=== PATIENT | female | born 1975 | race Hispanic/Latino ===

== ENCOUNTER 2017-08-07 09:03 | Observation (INO) | payer SELFPAY ==
[2017-08-07] MEDS ORDERED: Ondansetron HCl/PF 4 MG/2 ML Vial ONE (09:37)
[2017-08-07] MEDS ORDERED: Ketorolac Tromethamine 30 MG/ML VIAL ONE (09:37)
[2017-08-07 09:43] LABS: #Basophils 0.1 thou/uL (0.0-0.2); #Lymphocytes 1.3 thou/uL (1.20-3.40); #Monocytes 0.6 thou/uL (0.11-0.59); #Neutrophils 9.4 thou/uL (1.40-6.50); %Basophils 0.6 % (0.0-1.0); %Eosinophils 0.3 % (0.0-10.0); %Lymphocytes 11.4 % (21.0-51.0); %Monocytes 4.9 % (0.0-10.0); %Neutrophils 82.8 % (42.0-75.0); Hemoglobin 12.5 g/dL (12.0-16.0); Mean Corpuscular HGB CONC 33.6 g/dL (32.0-36.0); Mean Corpuscular Hemoglobin 28.8 pg (27.0-31.0); Mean Corpuscular Volume 85.7 fl (81.0-99.0); Mean Platelet Volume 7.9 fL (7.4-10.4); Platelet Count 180 thou/uL (130-400); RBC Distribution Width 13.2 % (11.5-14.5); Red Blood Cell (RBC) Count 4.33 mill/uL (4.20-5.40); White Blood Cell (WBC) Count 11.3 thou/uL (4.8-10.8)
[2017-08-07 09:54] LABS: BHCG - Serum Negative (NEGATIVE); Pregs Control Background? CLEAR/WHITE (CLR/WHITE); Pregs Control Bar Appear? YES (CONTROL BAR)
[2017-08-07 10:04] LABS: ALT (SGPT) 23 U/L (8-55); AST (SGOT) 26 U/L (5-34); Albumin 3.8 g/dL (3.5-5.0); Alkaline Phosphatase 114 U/L (40-150); Anion Gap 11 mmol/L (10-20); BUN (Urea Nitrogen) 5 mg/dL (7.0-18.7); Bilirubin, Total 0.4 mg/dL (0.2-1.2); Calc. Creatinine Clearance 0 mL/min (70-130); Calcium 9.1 mg/dL (7.8-10.44); Carbon Dioxide 19 mmol/L (22-29); Chloride 109 mmol/L (98-107); Estimated GFR-MDRD 83; Globulin 3.2 g/dL (2.4-3.5); Glucose 117 mg/dL (70-105); Lipase 27 U/L (8-78); Potassium 4.3 mmol/L (3.5-5.1); Sodium 135 mmol/L (136-145)
[2017-08-07 10:22] LABS: Bilirubin Negative (Negative); Blood, Urine Negative (Negative); Clarity CLEAR (Clear); Glucose, Urine (Dipstick) Negative (Negative); Leukocyte Negative (Negative); Protein, Urine (Dipstick) Negative (Neg-Trace); Specific Gravity, Urine 1.015 (1.002-1.036); Urobilinogen 0.2 mg/dL (0.2-1.0)
[2017-08-07 10:28] LABS: Bacteria/HPF None Seen HPF (None Seen); Hyaline Casts/LPF 0-3 HYALINE CAST LPF (0-3 Hyaline); Pathc Cast-AUWi Flag 0.13 (0-2.49); Squamous Epithelial 0-3 HPF (0-3); WBC/HPF 0-3 HPF (0-3)
[2017-08-07 10:30] LABS: Nitrite Negative (Negative)
--- NOTE | 2017-08-07 10:59 | ULT ---
RIGHT UPPER QUADRANT ULTRASOUND: Date: 08/07/17 HISTORY: Abdominal pain, nausea, and vomiting. FINDINGS: The liver demonstrates homogeneous echotexture without focal mass or intrahepatic ductal dilatation. A 5.0 mm nonshadowing echogenic focus adjacent to the gallbladder wall is seen without gallbladder wa ll thickening or pericholecystic fluid. The common duct measures 5.0 mm in diameter. Right kidney and pancreas are unremarkable. No free fluid is seen in Morison's pouch. IMPRESSION: 5.0 mm gallbladder polyp versus sludge ball. POS: [facility]
--- NOTE | 2017-08-07 12:23 | CT ---
CT ABDOMEN AND PELVIS WITHOUT CONTRAST: Date: 08/07/17 HISTORY: Abdominal pain with radiation to back, nausea and vomiting. No fever or diarrhea. FINDINGS: Absence of oral and IV contrast reduces the sensitivity of exam, particularly for evaluation of solid organs and bowel. The lung bases are clear. A tiny pericardial effusion is seen. No calcified gallstones are noted. No free air or free fluid is seen in the abdomen or pelvis. No calculi seen in the kidneys, ureters, or the urinary bladder. No hydroureteronephrosis is identified on either side. An abnormally distended f luid-filled appendix is not definitely seen. Uterus and ovaries are present. There is mass-like fulln ess in the left adnexa. IMPRESSION: 1. No CT evidence of urinary tract calculi or obstruction. 2. Mass-like fullness in the left adnexa. Further evaluation with pelvic ultrasound would be helpful . POS: [facility]
[2017-08-07] MEDS ORDERED: Morphine 4 MG/ML VIAL ONE (13:14)
[2017-08-07] MEDS ORDERED: Acetaminophen 500 MG TAB ONE (13:45)
[2017-08-07 14:51] VITALS: BMI 26.5
[2017-08-07] MEDS ORDERED: cefTRIAXone Sodium 1 MG in Syringe 0 ML IVPB SCH (15:30)
[2017-08-07] MEDS ORDERED: ISOVUE-370 76%-LOCM 1 ML ONE (15:43)
--- NOTE | 2017-08-07 16:39 | HP ---
PRIMARY CARE PHYSICIAN: None. CHIEF COMPLAINT: Abdominal pain. HISTORY OF PRESENT ILLNESS: The patient is a very pleasant 42-year-old female with no significant pa medical history who presents to the hospital with complaints of generalized abdominal pain. The p atient states that her pain started on Monday. Around 3:00 a.m., the pain woke her up. The patient stated that she had significant crampy abdominal pain. She walked around and had significant belchin g and also had flatulence. The patient states that she felt a little bit better; however, over the w eekend she continued to have this abdominal pain. Patient had some nausea; however, no vomiting. Th e patient stated that she had soft stool yesterday and today x1. The patient denies using any new me dication. The patient states that her pain is generalized and she also has some back pain and abdomi nal pain that is radiating to her lower back area. The patient denies any fevers; however, states th at she did have fever here. Patient was seen in the ER, underwent a CT abdomen and pelvis which only indicated that she does have some left adnexal fullness. Patient states that she does have a history of a cyst in her left ovary which she is aware of. Patient also had a right upper quadrant ultrasound which indicated no gallbl adder wall thickening, just has some sludge that was noted in the gallbladder. The patient was given some IV hydration and we were asked to admit this patient. PAST MEDICAL HISTORY: She has a history of anxiety. PAST SURGICAL HISTORY: She had half of her thyroid removed. She has had two C-sections. ALLERGIES: No known drug allergies. SOCIAL HISTORY: She denies any alcohol, drinking or smoking. FAMILY HISTORY: Her sister has diabetes. Otherwise, everybody is pretty healthy. MEDICATIONS: She takes clonazepam does not know the dose and citalopram, does not know the dose. REVIEW OF SYSTEMS: Except for the ones mentioned in the HPI, rest of the review of systems was negat chey. The following complete review of systems was negative, unless otherwise mentioned in the HPI or below: Constitutional: Weight loss or gain, sense of well-being, ability to conduct usual activities, exerc ise tolerance. Skin/Breast: Rash, itching, changes in hair growth or loss, nail changes, breast lumps, tenderness, swelling, nipple discharge. Eyes: Vision, double vision, tearing, blind spots, pain. ENT/Mouth: Headaches (location, time of onset, duration, precipitating factors), vertigo, lightheade dness, injury. Vision, double vision, tearing, blind spots, pain, nose bleeding, colds, obstruction, discharge, dental difficulties, gingival bleeding, dentures, neck stiffness, pain, tenderness, masses in thyroid or other areas Cardiovascular: Precordial pain, substernal distress, palpitations, syncope, dyspnea on exertion, or thopnea, nocturnal paroxysmal dyspnea, edema, cyanosis, hypertension, heart murmurs, varicosities, ph lebitis, claudication. Respiratory: Pain, shortness of breath, wheezing, stridor, cough, hemoptysis, fever or night sweats Gastrointestinal: Poor appetite, dysphagia, indigestion, abdominal pain, heartburn, eructation, naus ea, vomiting, hematemesis, jaundice, constipation, or diarrhea, abnormal stools (kelli-colored, tarry, bloody, greasy, foul smelling), flatulence, hemorrhoids, recent changes in bowel habits. Genitourinary: Urgency, frequency, dysuria, nocturia, hematuria, polyuria, oliguria, unusual (or tae nge in) color of urine, stones, hesitancy, change in size of stream, dribbling, acute retention or in continence, libido, potency. Musculoskeletal: Pain, swelling, redness or heat of muscles or joints, limitation, of motion, muscul ar weakness, atrophy, cramps. Neurologic/Psychiatric: Convulsions, paralyses, tremor, incoordination, paraesthesias, difficulties with memory of speech, sensory or motor disturbances, or muscular coordination (ataxia, tremor), emot ional problems, anxiety, depression, previous psychiatric care, unusual perceptions, hallucinations. Allergy/Immunologic: Skin rash, anemia, bleeding tendency, polydipsia, polyuria, intolerance to heat or cold. PHYSICAL EXAMINATION: VITAL SIGNS: Temperature 98.3, pulse of 106, blood pressure 103/58, 94% on room air, respirations ar e 15. GENERAL: She is awake, alert, oriented x3. Currently, does not appear in any distress. CARDIOVASCULAR: S1 and S2 present. No murmurs, rubs or gallops. She is still tachycardic. RESPIRATORY: Clear to auscultation. No rhonchi or wheezes noted. ABDOMEN: She has bowel sounds x2. She does have significant tenderness upon palpation to her epigas tric area, a little bit on her right lower quadrant, a little bit in the left lower quadrant and her left upper quadrant is mildly technically everywhere. No guarding noted. EXTREMITIES: No edema. Pedal pulses are present x2. LABORATORY DATA: WBC of 11.3, hemoglobin of 12.5, hematocrit of 37.1, platelets of 180. No bands we re noted. Her ESR is 21. test was negative. Sodium of 135, potassium of 4.3, chloride of 109, CO2 of 19, BUN of 5, and creatinine 0.7. LFTs were completely normal. Lipase is 27. Urine wa s completely normal. ASSESSMENT AND PLAN: The patient is a very pleasant 42-year-old female who presents to the hospital with complaints of generalized abdominal pain. 1. Abdominal pain, unknown etiology, could be gastritis versus cholecystitis. Unlikely to be cholec ystitis, she does have some sludge and her LFTs are completely normal. We will start patient on Pepc id b.i.d. for possible gastritis. Her lipase was completely normal. CAT scan did not show any acute abnormalities. She does have a cyst on her left ovary which showed left adnexal fullness, we will g et pelvic ultrasound just to make sure. Patient also states that she is only sexually active with he r , has only 1 partner and has never had any sexually transmitted infections. We will however , check chlamydia and gonorrhea. The patient states that when she had abdominal pain, she went to [facility] ER and was given antibiotic stating that she had UTI. The patient just took 1 day dose of antibiot ics; however, her abdominal pain did not improve. The patient's UA here is completely normal. She a lso has had normal Pap smears. Her last Pap smear was three years ago and denies any recent vaginal discharge. 2. Mild elevated leukocytosis. We will continue to monitor her. I do not feel at this time that ricardo montes needs antibiotics; however, we will just continue x1 for now and if everything is negative, we will discontinue antibiotics. The patient did have an elevated D-dimer in setting of abdominal pain with some pleuritic component. We will just get a CTA to rule out since I do not have a clear etiology o f her abdominal pain.
--- NOTE | 2017-08-07 16:44 | ULT ---
PELVIC SONOGRAM TRANSABDOMINAL AND TRANSVAGINAL IMAGING WITH DUPLEX EVALUATION: History: Left adnexal mass. Comparison: CT 08-07-17 FINDINGS: Urinary bladder is decompressed. Uterus has a heterogeneous echotexture and is 10.1 cm. Endometrium i s 1.4 cm. No free fluid. Right ovary is 3.2 cm with good color and spectral doppler flow. At the left adnexa, an ovary is 3.3 cm and demonstrates good color and spectral doppler flow. Immedia tely adjacent to it is a lobular complex lesion measuring up to 4.8 cm greatest diameter. Internal fl ow is apparent. A cystic component of the lesion is 2.2 cm. IMPRESSION: Nonspecific left adnexal partially cystic mass measuring up to 4.8 cm. Complex adnexal mass is favore d. Correlation with HCG levels is required regarding the possibility of an ectopic . Please consider gynecologic evaluation. POS: [facility]
[2017-08-07] MEDS ORDERED: CEFAZOLIN 1 GM, Syringe 2.5 ML in Sterile Water 7.5 ML SLOW IVP SCH (17:00)
[2017-08-07] MEDS: Sodium Chloride 0.9% 1,000 ML IV SCH ×2 (18:26→20:36)
--- NOTE | 2017-08-07 18:59 | CT ---
CT ANGIOGRAM OF THE CHEST: History: Pleuritic chest pain. Comparison: None. Technique: CT angiogram of the chest was performed in the axial plane. Bilateral oblique and coronal 3D reformatted images are submitted for interpretation. FINDINGS: No mediastinal mass, lymphadenopathy, or hematoma. Heart size is within normal limits. No pericardial effusion. The visualized aorta has an overall normal caliber. No periaortic fat stranding. Visualized upper solid organs are unremarkable. Trachea and central bronchi are patent. There are dependent atelectatic changes. No masses. No consol idations. No pleural effusion or pneumothorax. Adequate contrast opacification of the pulmonary arterial system to the level of the segmental arteri es. No filling defect to suggest thromboembolism. IMPRESSION: No evidence of pulmonary arterial embolus to the level of the segmental arteries. POS: [facility]
[2017-08-07] MEDS ORDERED: Morphine 5 MG/ML SYRINGE SLOW IVP PRN (20:30)
[2017-08-07] MEDS: Acetaminophen 325 MG TAB PO PRN (20:32)
[2017-08-07] MEDS: Famotidine 40 MG/4 ML VIAL SLOW IVP SCH (20:33)
[2017-08-07] MEDS ORDERED: Melatonin 3 MG TAB PO PRN (22:28)
[2017-08-08] MEDS: Sodium Chloride 0.9% 1,000 ML IV SCH ×2 (04:22→12:47)
[2017-08-08 05:22] LABS: ALT (SGPT) 14 U/L (8-55); AST (SGOT) 15 U/L (5-34); Albumin 3.1 g/dL (3.5-5.0); Alkaline Phosphatase 90 U/L (40-150); Anion Gap 10 mmol/L (10-20); BUN (Urea Nitrogen) 4 mg/dL (7.0-18.7); Bilirubin, Total 0.4 mg/dL (0.2-1.2); Calc. Creatinine Clearance 118 mL/min (70-130); Calcium 8.4 mg/dL (7.8-10.44); Carbon Dioxide 20 mmol/L (22-29); Chloride 109 mmol/L (98-107); Estimated GFR-MDRD Greater than 90; Globulin 2.5 g/dL (2.4-3.5); Glucose 98 mg/dL (70-105); Potassium 3.8 mmol/L (3.5-5.1); Protein, Total 5.6 g/dL (6.0-8.3); Sodium 135 mmol/L (136-145)
[2017-08-08 05:39] LABS: Band 12 % (5-11); Hemoglobin 10.4 g/dL (12.0-16.0); Lymphocytes 18 % (21-51); MDiff Complete? YES; Mean Corpuscular Hemoglobin 28.8 pg (27.0-31.0); Mean Corpuscular Volume 84.5 fl (81.0-99.0); Mean Platelet Volume 7.6 fL (7.4-10.4); Monocytes 6 % (0-10); Neutrophil 64 % (42-75); PLT Morphology Comment Appears Adequate; Platelet Count 165 thou/uL (130-400); RBC Distribution Width 13.4 % (11.5-14.5); RBC Morphology Normal; Red Blood Cell (RBC) Count 3.62 mill/uL (4.20-5.40); White Blood Cell (WBC) Count 10.4 thou/uL (4.8-10.8)
[2017-08-08] MEDS: Acetaminophen 325 MG TAB PO PRN (08:08)
[2017-08-08] MEDS ORDERED: Enoxaparin Sodium 40 MG/0.4 ML SYRINGE SC SCH (09:00)
[2017-08-08] MEDS: Famotidine 40 MG/4 ML VIAL SLOW IVP SCH (09:50)
[2017-08-08 12:06] VITALS: BP 108/70; TEMP 98.8
--- NOTE | 2017-08-08 16:34 | CON ---
DATE OF CONSULTATION: 08/08/2017 REFERRING PHYSICIAN: Mikayla Snell MD TIME OF SERVICE: 11:45 a.m. CHIEF COMPLAINT: Abdominal pain. HISTORY OF PRESENT ILLNESS: This is a 42-year-old G3, P2-0-1-2 who presented to the emergency depart formerly [facility] for lower abdominal pain. She reports that her pain started on Monday and was stabbing in natur e. She went to the emergency room in [place] and was given an antibiotic for UTI. She felt better o n Monday, but on Monday began hurting again. She returned to the ER in [place] and was told to con tinue her antibiotics that it would take some time to work. Her friends then decided to bring her to [place] to the emergency department on Monday for continued pain and she was admitted for further eval uation. She reports increased flatulence and belching and a bloated feeling that improved with passi ng gas. She denies any changes in her bowel habits. She does feel nauseated, but has not had any vo miting. She has noticed decreased appetite for the last couple days. She denies any change in her d iet or recent travel. REVIEW OF SYSTEMS: Negative for head, eyes, ears, nose, throat, cardiovascular, respiratory, GI, , neuro, psych, musculoskeletal, skin or constitutional symptoms other than mentioned above. OBSTETRIC/GYNECOLOGIC HISTORY: Two term C-sections. Last menstrual period was 07/18/2017. She has regular monthly cycles and demonstrates approximately 6 days per month. She denies any history of ST Ds. She is sexually active in a monogamous relationship. PAST MEDICAL HISTORY: Depression and anxiety. MEDICATIONS: 1. Citalopram. 2. Clonazepam. ALLERGIES: No known drug allergies. SOCIAL HISTORY: Negative for tobacco, alcohol, or drug abuse. She is with 2 children at [facility]. FAMILY HISTORY: Negative for breast, ovary, uterine, or colon cancer. PHYSICAL EXAMINATION: VITAL SIGNS: Temperature 98.8, blood pressure 108/70, pulse 99, respiratory rate 16, O2 saturation 9 6% on room air. GENERAL: Awake, alert, in no acute distress. CHEST: Nonlabored breathing. ABDOMEN: Soft, mildly tender to palpation over the left lower quadrant. No guarding or rebound. No masses palpable. PELVIC: Deferred. IMAGING: A transvaginal ultrasound was performed in the emergency department revealing a good blood flow to both ovaries. The left ovary was noted to have a complex mass approximately 4 cm and right o vary appeared within normal limits. LABORATORY DATA: WBC 10.4, hemoglobin 10.4, hematocrit 30.6, platelets 165,000. test nega tive. Urinalysis within normal limits. ASSESSMENT AND PLAN: A 42-year-old G3, P2-0-1-2 with a left complex adnexal mass, but no evidence of torsion or ectopic . She was instructed to follow up with an [facility]ERIFF SERGEANT in an outpatient [facility] and was given the name of a local clinic or she can go to one of her choosing for followup ultraso und and evaluation. She may continue to take ibuprofen and Tylenol for pain. All questions were ans wered and the patient agreed with the plan.
--- NOTE | 2017-08-08 22:04 | DIS ---
DATE OF ADMISSION: 08/08/2007 DATE OF DISCHARGE: 08/08/2017 DISCHARGE MEDICATIONS: Pepcid 20 mg p.o. b.i.d. for 7 days, 40 mg daily, clonazepam 4 mg at be dtime. The patient has a prescription for Bactrim that was given to her at the outside facility, she will continue with that as well. HISTORY OF PRESENT ILLNESS: The patient is a pleasant 42-year-old female, who initially presented to the hospital with intense abdominal pain. The patient underwent extensive workup including a lipase , which was normal. She also had a CT abdomen and pelvis, which indicated some left adnexal fullness ; however, otherwise, it was normal. She also had a pelvic ultrasound of and concerns to the left ad nexal fullness which indicated nonspecific left adnexal partial cystic mass measuring up to 4.8 cm co mplex adrenal mass favored at this point, LO[employer]ING [employer]IT OPERATOR [employer] [facility] was consulted who recommended patient to follow up a s outpatient in a local clinic for ultrasound. The patient also had a right upper quadrant ultrasoun d for her generalized abdominal pain, which indicated 5.0 mm gallbladder polyp versus sludge ball; ho wever, there was no shadowing echogenic focus on the gallbladder. Her LFTs were completely normal. The patient did have an elevated CRP and on discharge she did have some mild bands of 12. However, t here were no overt signs of infection including a CT thoracic, which was negative for any acute findi ngs. Also, urine was negative. Patient was discharged home. She will continue to take the antibiot ic that was prescribed to her and her other hospital. She was given Pepcid. She was asked to return to the hospital if her symptoms worsen. She was also asked to follow up with LO[employer]ING UNIT OPERATOR [employer]ING for her left ad nexal findings, which according to the patient is not new. The patient's procedures were CT abdomen and pelvis, CTA of the chest, abdominal ultrasound, and pelvic ultrasound. CONSULTATIONS: LO[employer]IT OPERATOR [employer].
[2017-08-10 01:08] LABS: Chlamydia by PCR Not Detected (NotDetected)
[2017-08-10 09:39] LABS: GC by PCR Not Detected (NotDetected)
== END 2017-08-08 14:29 | disposition home or self-care (01) ==
LOC: ERS 09:03 → 2SW 13:39
PROVIDERS: ADMIT Internal Medicine; ATTEND Internal Medicine
DX: R10.9 Unspecified abdominal pain (principal); D72.829 Elevated white blood cell count, unspecified; F41.9 Anxiety disorder, unspecified; E89.0 Postprocedural hypothyroidism; Z79.899 Other long term (current) drug therapy; Z98.891 History of uterine scar from previous surgery
CPT/HCPCS: 36415; 71275; 74176; 76705; 76856; 80053; 81003; 83690; 84703; 85007; 85025; 85027; 85379; 85652; 86140; 87491; 87591; 93005; 96361; 96374; 96375; 96376; J2270; A4216; G0378; J0690; J1650; J1885; J2405

== ENCOUNTER 2017-08-10 05:47 | Emergency (ER) | payer SELFPAY ==
[2017-08-10 06:19] LABS: #Basophils 0.1 thou/uL (0.0-0.2); #Eosinphils 0.1 thou/uL (0.0-0.7); #Monocytes 0.8 thou/uL (0.11-0.59); #Neutrophils 6.9 thou/uL (1.40-6.50); %Basophils 0.7 % (0.0-1.0); %Eosinophils 0.8 % (0.0-10.0); %Lymphocytes 27.7 % (21.0-51.0); %Monocytes 7.2 % (0.0-10.0); %Neutrophils 63.6 % (42.0-75.0); Hemoglobin 12.7 g/dL (12.0-16.0); Mean Corpuscular HGB CONC 34.5 g/dL (32.0-36.0); Mean Corpuscular Hemoglobin 28.7 pg (27.0-31.0); Mean Corpuscular Volume 83.1 fl (81.0-99.0); Mean Platelet Volume 7.3 fL (7.4-10.4); Platelet Count 238 thou/uL (130-400); Red Blood Cell (RBC) Count 4.44 mill/uL (4.20-5.40); White Blood Cell (WBC) Count 10.9 thou/uL (4.8-10.8)
[2017-08-10 06:38] LABS: ALT (SGPT) 32 U/L (8-55); AST (SGOT) 31 U/L (5-34); Albumin 4.2 g/dL (3.5-5.0); Alkaline Phosphatase 125 U/L (40-150); Anion Gap 14 mmol/L (10-20); BUN (Urea Nitrogen) 8 mg/dL (7.0-18.7); Bilirubin, Total 0.4 mg/dL (0.2-1.2); Calc. Creatinine Clearance 0 mL/min (70-130); Calcium 9.8 mg/dL (7.8-10.44); Carbon Dioxide 21 mmol/L (22-29); Chloride 105 mmol/L (98-107); Estimated GFR-MDRD Greater than 90; Globulin 3.7 g/dL (2.4-3.5); Glucose 101 mg/dL (70-105); Lipase 26 U/L (8-78); Protein, Total 7.9 g/dL (6.0-8.3); Sodium 136 mmol/L (136-145)
[2017-08-10] MEDS ORDERED: HYDROcodone/Acetaminophen 10/325 mg Tablet ONE (07:04)
[2017-08-10 07:15] LABS: Bilirubin Negative (Negative); Blood, Urine Negative (Negative); Clarity CLEAR (Clear); Glucose, Urine (Dipstick) Negative (Negative); Leukocyte Negative (Negative); Nitrite Negative (Negative); Protein, Urine (Dipstick) Negative (Neg-Trace); Specific Gravity, Urine 1.022 (1.002-1.036)
[2017-08-10 07:18] LABS: Pregnancy Test - Urine (BHCG) Negative (Negative); Pregu Control Background? CLEAR/WHITE (CLR/WHITE); Pregu Control Bar Appear? YES (CONTROL BAR); Specific Gravity 1.022 (1.002-1.036)
--- NOTE | 2017-08-10 10:05 | ULT ---
PELVIC SONOGRAM TRANSVAGINAL IMAGING WITH DUPLEX EVALUATION: Date: 08/10/17 HISTORY: Pelvic mass. Follow-up. COMPARISON: 08/07/17. FINDINGS: Urinary bladder is decompressed. Uterus has a heterogeneous echotexture and is now 9.7 cm. Endometriu m is 2.1 cm thickness and contains a small amount of fluid. No free fluid is apparent within the pelv is. Right ovary is 3.9 cm in length and demonstrates good color and spectral Doppler flow. Left ovary aleksander sures up to 2.7 cm and also demonstrates good color and spectral Doppler flow. The complex partially cystic mass at the left adnexa is now 4.9 x 4.3 x 4.2 cm greatest diameter, not significantly changed . IMPRESSION: 1. No significant change in sonographic appearance of the complex left adnexal mass since the prior study from 08/07/17. 2. Small amount of fluid within the thickened endometrial cavity. POS: [facility]
== END 2017-08-10 11:10 | disposition home or self-care (01) ==
LOC: ERS 05:47
DX: R19.00 Intra-abdominal and pelvic swelling, mass and lump, unspecified site (principal); E78.5 Hyperlipidemia, unspecified; F32.9 Major depressive disorder, single episode, unspecified; F41.9 Anxiety disorder, unspecified; Z79.899 Other long term (current) drug therapy
CPT/HCPCS: 36415; 76856; 80053; 81003; 81025; 83690; 85025